=== PATIENT | female | born 1985 | race Caucasian/White ===

== ENCOUNTER 2023-05-07 13:28 | Outpatient (CLI) | payer OTHER, SELFPAY | END 2023-05-07 13:29 | disposition home or self-care (01) | LOC: NFLDREF 05-10 12:33 | PROVIDERS: Visit Provider Advanced Practice Midwife | DX: Z34.83 Encounter for supervision of other normal pregnancy, third trimester (principal) | CPT/HCPCS: 86592 ==

== ENCOUNTER 2023-05-16 09:11 | Outpatient (CLI) | payer OTHER, SELFPAY ==
--- NOTE | 2023-05-16 09:15 | CRLHL7_ITS ---
For Patients: As a result of the Century Cures Act, medical imaging exams and procedure reports are released immediately into your electronic medical record. You may view this report before your referring provider. If you have questions, please contact your health care provider. INDICATION: Third trimester scan, evaluate growth. COMPARISON: 02/14/2023 TECHNIQUE: Real time estrada scale imaging of the fetus was performed as well as color Doppler and spectral Doppler analysis of the umbilical artery. FINDINGS: Sonographic imaging demonstrates a single living intrauterine gestation. Fetus demonstrates a regular cardiac rate of 126 beats per minute. Fetus has a vertex position. The placenta lies posteriorly. Amniotic fluid volume appears normal and there is a single deepest vertical pocket: 4.8 cm. The estimated weight is 2623gm which lies at the greater than 97th %. On the prior OB ultrasound exam dated 02/14/2023 the estimated weight was at the 72nd%. BPD 76th percentile. HC 64th percentile. AC greater than 97th percentile. FL 34th percentile. The HC/AC ratio measures 0.93 range (0.94-1.11). Minimal pelviectasis bilaterally measuring 4 millimeters, considered normal. IMPRESSION: Sonographic gestational age 34 weeks 3 days and sonographic due date of 06/24/2023. Sonographic age 13 days ahead of the clinical age. Estimated weight greater than 97th percentile. Abdominal circumference greater than 97th percentile. Dictated by Miguel Mendoza MD @ 05/16/2023 11:56:11 AM (Electronically Signed)
== END 2023-05-16 09:12 | disposition home or self-care (01) ==
LOC: US 09:12
PROVIDERS: Visit Provider Advanced Practice Midwife
DX: Z34.93 Encounter for supervision of normal pregnancy, unspecified, third trimester (principal); O36.63X0 Maternal care for excessive fetal growth, third trimester, not applicable or unspecified; Z3A.36 36 weeks gestation of pregnancy
CPT/HCPCS: 76816

== ENCOUNTER 2023-06-13 10:14 | Outpatient (CLI) | payer OTHER, SELFPAY ==
[2023-06-14 12:55] LABS: Strep B DNA Probe POSITIVE (Negative)
[2023-06-14 13:25] LABS: Strep B Susceptibility Needed? No
== END 2023-06-13 10:15 | disposition home or self-care (01) ==
LOC: NFLDREF 10:16
PROVIDERS: Visit Provider Advanced Practice Midwife
DX: Z34.93 Encounter for supervision of normal pregnancy, unspecified, third trimester (principal)
CPT/HCPCS: 87081; 87653

== ENCOUNTER 2023-07-05 05:11 | Inpatient (IN) | payer OTHER, SELFPAY ==
[2023-07-05] VITALS (28 sets, daily range): BP systolic 95–165; BP diastolic 60–84; PULSE 76–127; RESP 16–18; TEMP 36.3–36.6; O2SAT 81–100; BMI 26.9
[2023-07-05] MEDS: LACTATED RINGERS 1000 ML 1,000 ML 925 ML IV (05:21)
[2023-07-05] MEDS: AMPICILLIN 2 GM in 0.9 % SODIUM CHLORIDE Mini-bag 100 ML IVPB (05:21)
--- NOTE | 2023-07-05 05:25 | P.LDBA_ITS ---
Subjective History of Present Illness Narrative: Maty is a 38yo at 39 5/7 weeks gestation being admitted to Labor and Delivery for spontaneous onset of labor. Her labor started yesterday morning. She had irregular contractions throughout the day. She had a cervical exam and membrane sweep in clinic yesterday. She was 1/70%/high. She reports that contractions became more regular and intense at about 3 am this morning. She denies any leaking of fluid or bleeding. She endorses movement. She is in termittently feeling pressure. Her , Vickey, is her labor support. Her full history and physical was dictated by Vicky Brito CNM on 06/20/2023. Please see this for details. Specific Issues/Plans Vickey Tx of care at 30 wks from [place] H&P done by Vicky Brito CNM on 06/20/23 1. Covid in recommended 32 wk growth: EFW >97% recommended 81mg ASA 2. Hx of Asthma as child resolved age 13 3. 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 Anemia, Rpt Hgb 11, on iron 5. GBS+. Hx fast labors (4-5hrs) and lives 50 min away. Antibiotics in labor OB Labs: ? Blood type: O+, antibody screen negative. ? Hgb: 13.4? Platelets: 267 ? Rubella: Immune ? Varicella: not tested RPR: non-reactive ? HBsAg: non-reactive ? Hep C: negative HIV: negative ? UC: negative GC/Chlamydia: negative/negative ? Pap (08/30/22): ?NIL/HPV neg Genetic screening: NIPT neg 1hr gtt: not done prior ? OB - Problem Based A/P Additional Plan (1) Spontaneous onset of labor: Status: Acute (2) Pain during labor: Status: Acute (3) 39 weeks gestation of : Status: Acute (4) Group B Streptococcus carrier, antepartum: Status: Acute Plan ASSESSMENT:? 38 at 39.5 weeks gestation? complicated by:?Covid in , hx of asthma, hx of 3rd degree, anemia, GBS+ Labor type: Spontaneous, Active labor? Category 1 FHR pattern.?? Labor complicated by: none? GBS positive? ? PLAN:? 1. Routine intrapartum cares as ordered. Continue with expectant management? 2. Monitoring per policy, intermittent? 3. Planning unmedicated . Desires water . Consent signed. Hep C negative. Candidate for analgesia of choice if desired.?? 4. Patient encouraged to reposition and ambulate to promote physiologic labor and .? 5. GBS prophylaxis initiated for GBS positive status. Will treat with antibiotics per protocol. 6. Anticipate . Delivery/Labor/Induction Plan Plan: expectant management OB Exam Physical Exam Vital signs: Temperature 97.4 F L 07/05/23 05:31 Pulse Rate 78 07/05/23 05:28 Blood Pressure 104/60 07/05/23 05:28 Blood Pressure Mean 77 07/05/23 05:28 Narrative: Vitals Reviewed Constitutional:? Alert and oriented x3 HEENT:? Normocephalic, atraumatic Neck:? Supple Lungs:? Clear to auscultation bilaterally Heart:? Regular rate and rhythm, no murmur, rub or gallop Abdomen:? Soft, nontender, and gravid. Vertex by Keny's, confirmed with cervical exam. Extremities:? No edema or erythema Cervix: 8 cm/70%/bulging bag/vertex NST: 130 bpm/moderate variability/15x15 accelerations/no decelerations/contractions every 3-4 minutes Detailed Labor and Delivery Exam Patient Gravid: Yes
--- NOTE | 2023-07-05 05:52 | P.ANBPRC_ITS ---
[facility] Medical History History of asthma ?Z87.09 - Personal history of other diseases of the respiratory system (ICD- 10) Papanicolaou smear of cervix with atypical squamous cells cannot exclude high grade squamous intraepithelial lesion (ASC-H) ?R87.611 - Atypical squamous cells cannot exclude high grade squamous intraepithelial lesion on cytologic smear of cervix (ASC-H) (ICD-10) History of miscarriage ?Z87.59 - Personal history of other complications of , childbirth and the puerperium (ICD-10) Surgical History [place] teeth extracted ?K08.409 - Partial loss of teeth, unspecified cause, unspecified class (ICD- 10) Hx of colposcopy with cervical biopsy ?Z98.890 - Other specified postprocedural states (ICD-10) Family History Father Asthma Mother Neuropathy Paternal Grandfather Alzheimers disease Social History What is your current living situation?: I presently have a place to live Problems where you live: no known problems In the past 12 months, utilities in danger of being shut off: no In past 12 months, lack of transportation kept you from medical appts, meetings, work, or getting things needed for daily living: no In the past 12 mos, have been you worried that your food would run out before you had money to buy more?: never true In the past 12 mos, the food you bought just didn't last and you didn't have money to buy more?: never true How often does anyone, including family, friends and others, physically hurt you : never How often does anyone, including family, friends and others, insult or talk down to you: never How often does anyone, including family, friends and others, threaten you with harm: never How often does anyone, including family, friends and others, scream or curse at you: never Little interest or pleasure in doing things: not at all Feeling down, depressed, or hopeless: not at all Meds Home Medications and Allergies Home Medications Medication Instructions Recorded Confirmed Type levocetirizine 5 mg tablet (Xyzal) 5 mg PO QDAY 05/02/23 07/04/23 History vitamins no.148-iron 27 cap PO 05/02/23 07/04/23 History mg-folate 1 mg-dha 205 mg capsule Allergies Allergy/AdvReac Type Severity Reaction Status Date / Time nickel Allergy Intermediate Rash Verified 07/04/23 11:35 Results Vital Signs Vital Signs: Last Vital Signs Temp 97.4 F L 07/05/23 05:31 Pulse 78 07/05/23 05:50 BP 115/71 07/05/23 05:50 Pulse Ox 100 07/05/23 05:50 Anesthesia Procedures Intrathecal Patient Location: OB Start Time: 05:16 Stop Time: 05:52 Start Date: 07/05/23 Stop Date: 07/05/23 Reason for Block: procedure for pain Patient Position: sitting Performed By: Ildefonso Palm Preanesthetic Checklist: IV checked, site marked, risks and benefits discussed, monitors and equipment checked, pre-op evaluation and anesthesia consent Prep: chlorhexidine gluconate Monitoring: blood pressure monitoring, continuous pulse oximetry and heart rate Approach: midline Vertebral Space: lumbar (1-5) Needle Type: Sprotte Injection Technique: single-shot Needle gauge: 25
[2023-07-05] MEDS: fentaNYL 100 MCG/2 ML inj 50 MCG INTRATHECA (05:54)
[2023-07-05] MEDS: OXYTOCIN 30 unit/500 ML in NS 30 UNIT/500 ML BAG 300 UNIT IVPB (06:29)
[2023-07-05] MEDS: LIDOCAINE 1 % PF 30 ML INJECTION (06:45)
--- NOTE | 2023-07-05 07:05 | W.PM.VAGDE_ITS ---
OB Procedure Vag Delivery Mother Details Mother Details: The patient is a 38 year-old, 7, now Para 5, admitted on 07/05/23 at 39.5 Days gestation. : 7 Para: 5 Weeks Gestation: 39.5 Additional Details Amniotic Membrane Status: SROM Amniotic Membrane Rupture Date: 07/05/23 Amniotic Membrane Rupture Time: 05:38 Amniotic Membrane Fluid Description: Meconium Stained Analgesia/Anesthesia Type: Intrathecal Waterbirth: No Pitcoin: Yes ([facility] only) Intrapartal Events: None Labor Onset: 03:00 Complete: 06:06 Pushin:06 Heart: heart tones during second stage were category II with good return to baseline between contractions and moderate variablity. Delivery Details Delivery Date: 07/05/23 Delivery Time: :28 Infant Gender: Male Infant Viability: Alive; Heart Rate Present Position at Delivery: OA Delivery Details: Patient was admitted for spontaneous onset of labor and progressed normally. SROM noted at 0530 with thick meconium fluid. Patient was complete at 0606 and pushing at 0606. of a viable male at 0628 in semi-fowlers on the bed. Vertex delivered HINA. Head delivered but then stalled. Tight nuchal identified, unable to reduce. Shoulder was palpated and easily able to electrical test engineer axillary of . Body dystocia identified and alleviated with maternal pushing efforts, traction of and some suprapubic pressure applied by RN per provider instruction to assist with delivery. Baby slowly delivered and was partially somersaulted through cord then reduced. Total time between delivery of head and delivery of the body was 40 seconds. Infant passed to mothers abdomen with a vigorous cry. Cord was clamped and cut at > 5 minutes. APGARS were 7 at one mi nute and 9 at five minutes respectively. Mouth was bulb suctioned. Intact placenta with a 3 vessel cord delivered spontaneously at 0638. Fundus firm. 1st degree identified and repaired in typical fashion, likely along previous tear due to presence of scar tissue. QBL 250 cc. Mother and baby stable; mother plans to breastfeed. weight pending. 1 Minute Interval Total Score: 7 5 Minute Interval Total Score: 9 Additional Details Shoulder Dystocia: No Placenta Delivery Time: 06:38 Placental Delivery Description: Spontaneous Delivery repair: Vicryl Procedure Done: Global Blood Loss: 250 Laceration: Perineal - 1st Degree Blood Loss Measurement Type: QBL Bakri Used: No Sponge/Need Count Correct: Yes Cord Vessel Description: 3 Vessels Event Summary Status: Mother and were stable after delivery. Disposition: floor
[2023-07-05] MEDS: DOCUSATE SODIUM 100 MG CAPSULE PO (09:20)
[2023-07-05] MEDS: IBUPROFEN 600 MG TABLET PO ×3 (09:20→23:26)
[2023-07-05] MEDS: ACETAMINOPHEN 500 MG TABLET 1000 MG PO ×2 (12:13→18:17)
[2023-07-05] MEDS: TETANUS/DIPHTH/PERTUSSIS 0.5 ML SYRINGE IM (16:48)
[2023-07-06 06:23] LABS: Hemoglobin* 9.7 gm/dL (12.0-16.0)
[2023-07-06] MEDS: ACETAMINOPHEN 500 MG TABLET 1000 MG PO ×2 (07:37→15:47)
[2023-07-06] MEDS: DOCUSATE SODIUM 100 MG CAPSULE PO (07:38)
[2023-07-06 08:30] VITALS: BP 106/67; PULSE 88; RESP 16; TEMP 36.7
--- NOTE | 2023-07-06 09:09 | P.DS_ITS ---
DS: Providers Provider Date Seen: 07/06/23 Date of admission: 07/05/23 05:11 Primary care physician: Not a Local Provider Admitting Clinician: Stacey Estes CNM Attending Physician on discharge: Stacey Estes CNM Date of Discharge: 07/06/23 DS: Diagnosis Discharge Diagnosis (1) care following vaginal delivery: Status: Acute (2) Lactating mother: Status: Acute (3) Anemia: Status: Acute Exam Narrative: Exam Narrative: GENERAL APPEARANCE:? normal affect, alert, no distress? MOOD:? appropriate? CHEST:? clear to auscultation and percussion? HEART:? regular rate and rhythm? ABDOMEN:? soft, non-tender the uterine fundus is U/1 and is appropriate for the stage of recovery.? PERINEUM:? mild edema of the perineum, there is a 1st degree laceration that is healing well.? EXTREMITIES:? normal and no edema? Const: Vital Signs, click to edit/add: Vital Signs - 24 hr 07/05/23 12:02 07/05/23 16:30 07/05/23 20:17 Temperature 97.9 F 97.9 F 97.9 F Pulse Rate [Pulse Oximeter] 100 85 93 Respiratory Rate 18 16 18 Blood Pressure [Le ft Arm] 109/84 115/76 125/80 Pulse Oximetry 97 98 97 Oxygen Delivery Me thod Room Air Room Air Room Air 07/05/23 23:30 Temperature 97.4 F L Pulse Rate [Pulse Oximeter] 91 Respiratory Rate Blood Pressure [Le ft Arm] 111/69 Pulse Oximetry 97 Oxygen Delivery Me thod Room Air Documenting provider has reviewed patient's vital signs: yes OB - DS: Summary Hospital Course Hospital Course: The patient is a 38 year old G 7 P 5 at 39.5 weeks gestation that was admitted to the Center on 07/05/23 for spontaneous labor. She had an uncomplicated vaginal delivery. She delivered a viable male . She is breast feeding and denies concerns with how it is going. the patient has done well. The pain is well controlled with current medications.? She has no new complaints.? Urinary output is adequate and she is voiding without difficulty.? Has a good appetite, is tolerating a general diet, is passing flatus, and has not had a bowel movement.? Has small amount of rubra lochia.? She is ambulating well.?She is planning natural family planning for control. She has used this successfully in the past. Her Hgb is 9.7 but she denies feeling symptoms. She was on iron in and will plan to continue it. She states that she has enough at home and declines a new prescription. She also declines stool softener prescription. Peripartum Data Infant delivery method: Vaginal Laceration description: Perineal - 1st Degree complications: none [place] Gender: Male Discharge Plan: Home Status at Discharge Functional status at discharge: independent ambulation Overall status at discharge: patient is progressing back to baseline Time Spent with Patient Time attestation: Total time spent providing and/or coordinating discharge services: Discharge Plan Discharge Disposition: Home, Self-Care Date of Admission: 07/05/23 05:11 Attending Provider on Discharge: Aruna Ryan Primary Care Provider: Provider,Not a Local Condition: Stable Anticipated Discharge Date/Time: 07/06/23 10:00 Discharge Medications: New ibuprofen 600 mg Tablet 600 mg PO Q6H PRNQty: 60 0RF Continued [id number] 6-dha 27 mg iron-1 mg -205 mg capsule 1 cap PO ONCE levocetirizine [Xyzal] 5 mg tablet 5 mg PO QDAY ferrous sulfate 325 mg (65 mg iron) tablet 325 mg PO Q OTHER DAY Qty: 30 3RF Discharge Orders: Discharge Order (Routine); Ordered 07/06/23 Ordered By: Aruna Ryan Patient Education: OB Vaginal/Breast Feeding Additional Instructions: Discharge instructions were reviewed with the patient including signs and symptoms of infection and home going medications.? Lifting Restrictions: 20 pounds for 6? weeks? ?? Do not drive while taking narcotic pain meds.? Off Work or School for 6 weeks.? ?? Symptoms to report to doctor:? -Bleeding that saturates more than one pad per hour? -Passing clots larger than the size of a golf ball? -Pain not relieved by prescribed medication? -Fever above 100.4 degrees Fahrenheit? -A foul vaginal odor? -Difficulty in emotions, mood and functions? -Thoughts of hurting yourself and/or ? -Painful, reddened area in your breast? -Any drainage, redness or tenderness in your IV/epidural site? -Severe headache that doesn't improve after taking medications? -Changes in vision, including temporary loss of vision, blurred vision, and/or light sensitivity? -Upper abdominal pain (usually under ribs on the right side)? -Decrease in urination or painful, frequent urinating? -Chest pain? -Shortness of breath? -Tenderness or pain with redness and/swelling in the calf(s) of your leg? ?? Follow Up in clinic in 2 and 6 weeks.? ?? consultation services are available to all mothers and babies for the first year after delivery.? To make an appointment, please call [phone].? Activity Level: Activity as Tolerated Discharge Diet: Regular Follow Up Appointments: Provider,Not a Local [Primary Care Provider] - [facility] [Provider Group] Forms: MyHealth Info Instructions
[2023-07-06] MEDS: IBUPROFEN 600 MG TABLET PO (11:28)
[2023-07-06 14:07] LABS: Rapid Plasma Reagin (RPR) Non Reactive (Non Reactive)
[2023-07-06 16:27] VITALS: BP 121/75; PULSE 88; RESP 15; TEMP 36.8
== END 2023-07-06 18:53 | disposition home or self-care (01) | DRG 807 ==
LOC: OB OUT 05:11 → OB 05:11
PROVIDERS: Admitting Provider Advanced Practice Midwife; Visit Provider Advanced Practice Midwife
DX: O70.0 First degree perineal laceration during delivery (principal); Z37.0 Single live birth; O99.02 Anemia complicating childbirth; D64.9 Anemia, unspecified; O99.824 Streptococcus B carrier state complicating childbirth; Z3A.39 39 weeks gestation of pregnancy; O99.013 Anemia complicating pregnancy, third trimester; O90.81 Anemia of the puerperium
CPT/HCPCS: 01967; 36415; 85018; 86592; 90715; A9270; J0290; J2001; J2371; J3010; J7120